=== PATIENT | female | born 1985 | race Caucasian/White ===

== ENCOUNTER 2017-12-07 16:50 | Emergency (ER) | payer MEDICAID, OTHER ==
[~2017-12-07] VITALS: Ht 170.2 cm; Wt 98.4 kg
[2017-12-07 16:56] VITALS: BP_SYST 161
[2017-12-07] MEDS ORDERED: MORPHINE 4 MG/ML INJ. SYRINGE IVP ONE (17:30)
[2017-12-07] MEDS ORDERED: DIPHENHYDRAMINE INJ 50 MG/ML VIAL IVP ONE (17:30)
[2017-12-07 17:31] LABS: BASOPHILS # (AUTO) 0.1 K/uL (0.0-0.2); BASOPHILS % (AUTO) 0.8 % (0.0-2.0); EOSINOPHILS # (AUTO) 0.2 K/uL (0.0-0.4); EOSINOPHILS % (AUTO) 1.8 % (0.0-4.0); HEMATOCRIT 33.8 % (36-48); LYMPHOCYTES # (AUTO) 2.3 K/uL (1.0-5.5); LYMPHOCYTES % (AUTO) 24.6 % (20.5-51.5); MEAN CORPUSCULAR HEMOGLOBIN 26 pg (27-31); MEAN CORPUSCULAR HGB CONC 33 % (32-36); MEAN CORPUSCULAR VOLUME 80 fL (79.0-98.0); MONOCYTES # (AUTO) 0.9 K/uL (0.0-1.0); MONOCYTES % (AUTO) 9.6 % (1.7-9.3); NEUTROPHILS # (AUTO) 5.9 K/uL (1.8-7.7); NEUTROPHILS % (AUTO) 63.2 % (40.0-70.0); RED BLOOD CELL COUNT(AUTO) 4.24 MIL/uL (4.2-6.2); RED CELL DISTRIBUTION WIDTH 13.4 % (9.0-15.0); WHITE BLOOD COUNT (AUTO) 9.4 K/uL (4.8-10.8)
[2017-12-07 17:32] LABS: BILIRUBIN,URINE NEGATIVE (NEGATIVE); BLOOD, URINE NEGATIVE (NEGATIVE); CLARITY/URINE CLEAR (CLEAR); COLOR,URINE YELLOW (YELLOW); GLUCOSE,URINE NEGATIVE (NEGATIVE); KETONES,URINE NEGATIVE (NEGATIVE); LEUKOCYTE ESTERASE ,URINE NEGATIVE (NEGATIVE); NITRITE, URINE NEGATIVE (NEGATIVE); PROTEIN URINE NEGATIVE (NEGATIVE); UROBILINOGEN,URINE 0.2 (0.2-1.0)
[2017-12-07] MEDS ORDERED: MORPHINE SULFATE 10 MG/ML VIAL ONE (17:33)
[2017-12-07 17:35] LABS: PLATELET COUNT (AUTO) 250 K/uL (130-430)
[2017-12-07 17:40] LABS: CREATININE 0.71 mg/dL (0.55-1.30); POTASSIUM 4.1 mmol/L (3.5-5.1)
[2017-12-07 17:46] LABS: ALBUMIN 3.9 g/dL (3.4-4.8); TOTAL BILIRUBIN 0.2 mg/dL (0.0-1.0)
[2017-12-07 19:10] VITALS: BP_SYST 153
== END 2017-12-07 19:10 | disposition home or self-care (01) ==
LOC: SED 16:50
DX: N83.209 Unspecified ovarian cyst, unspecified side (principal); D64.9 Anemia, unspecified; R03.0 Elevated blood-pressure reading, without diagnosis of hypertension
CPT/HCPCS: 36415; 76830; 76857; 80053; 81003; 81025; 83690; 85025; 96374; 96375; 99285; J1200; J2270

== ENCOUNTER 2018-05-03 10:42 | Emergency (ER) | payer MEDICAID ==
[~2018-05-03] VITALS: Ht 170.2 cm; Wt 97.1 kg
[2018-05-03 10:56] VITALS: BP_SYST 147
--- NOTE | 2018-05-03 11:00 | NUR ---
Pt complains of n/v with no abdominal pain and dizziness for the past week. Pt states was late on her period, took a test which was negative but states this happened years ago and was and lost the baby. Pt's urine was negative here in the ER as well. No other injuries/complaints per pt or noted.
--- NOTE | 2018-05-03 11:03 | NUR ---
Pt placed in bed 5 Addendum: 05/03/18 at 1130 by [email or web address] Pt was placed in bed at 1100
--- NOTE | 2018-05-03 11:15 | NUR ---
ER at bedside examining patient.
[2018-05-03 11:25] VITALS: BP_SYST 147
--- NOTE | 2018-05-03 11:25 | NUR ---
Patient given written and verbal discharge instructions and verbalizes understanding. ER MD discussed with patient the results and treatment provided. Patient in stable condition. ID arm band removed. Rx of zofran given. Patient educated on pain management and to follow up with PMD. Pain Scale 0. Opportunity for questions provided and answered.
== END 2018-05-03 11:25 | disposition home or self-care (01) ==
LOC: SED 10:42
DX: R11.2 Nausea with vomiting, unspecified (principal); M79.7 Fibromyalgia; I10 Essential (primary) hypertension
CPT/HCPCS: 81025; 99283